=== PATIENT | male | born 1970 | race Hispanic/Latino ===

== ENCOUNTER 2024-08-04 10:23 | Emergency (ER) | payer BC ==
[~2024-08-04] VITALS: Ht 170.2 cm; Wt 81.6 kg
[2024-08-04 10:26] VITALS: BP 136/97; PULSE 69; RESP 16; TEMP 97.9; O2SAT 98
[2024-08-04] MEDS ORDERED: SULF1TAB42 PO (10:47)
[2024-08-04] MEDS ORDERED: POLY17PO4 PO (10:47)
--- NOTE | 2024-08-04 10:53 | ERN ---
General Chief Complaint: Hemorrhoids Stated Complaint: RECTAL PAIN Time Seen by MD: 10:28 Time Seen by Midlevel: 10:28 Source: patient History of Present Illness Initial Comments Patient is a 54-year-old male with no significant past medical history presenting to the emergency department with rectal pain that started two days ago. Patient noticed swelling to his anal area and is concerned he may have a hemorrhoid. Denies any blood in stool, fever, chills, or any other symptoms at this time. Denies any previous history of hemorrhoids but does report a history of chronic constipation. Allergies: Coded Allergies: No Known Drug Allergies (Unverified Allergy, Unknown, 08/04/24) Past Medical History Past Medical History: No Pertinent History Past Surgical History: None ROS Dictation CONSTITUTIONAL: Negative except for HPI HEAD/FACE: Negative except for HPI EENT: Negative except for HPI RESPIRATORY: Negative except for HPI GASTROINTESTINAL/ABDOMINAL: Negative except for HPI GENITOURINARY: Negative except for HPI MUSCULOSKELETAL: Negative except for HPI INTEGUMENTARY: Negative except for HPI NEUROLOGICAL/PSYCH: Negative except for HPI HEMATOLOGIC/LYMPHATIC: Negative except for HPI All Systems Negative, Except as noted above. 13 point review of systems assessed and all negative except for above. Physical Exam Physical Exam Dictation PHYSICAL EXAM: GENERAL: alert,, awake oriented x 3 HEENT: EOMI, Sclera non icteric, moist mucosa NECK: Supple, no JVD, trachea midline LUNGS: Clear breath sounds bilaterally. No wheezes HEART: Regular rate and rhythm. Normal S1 and S2, without murmurs ABD: Abdomen soft, nontender. Bowel sounds present EXT: No clubbing or cyanosis, NEURO: Alert and oriented to person, follows commands RECTAL: Large thrombosed hemorrhoid at the 3 o'clock position, no surrounding erythema, induration or drainable abscess at this time MDM MDM: Patient is a 54-year-old male with no significant past medical history presenting to the emergency department with rectal pain that started two days ago. Patient noticed swelling to his anal area and is concerned he may have a hemorrhoid. Denies any blood in stool, fever, chills, or any other symptoms at this time. Denies any previous history of hemorrhoids but does report a history of chronic constipation. Rectal examination was performed with Dr. Colbert at bedside. On physical examination patient has a large thrombosed external hemorrhoid at the 3 o'clock position measuring approximately 3 x 3 cm. We applied a lidocaine to the base of the hemorrhoid and a small incision was created which resulted in large return of a blood clot. Patient felt immediate relief. Patient will be started on oral antibiotics and MiraLax for outpatient management. He will be referred to GI outpatient for outpatient evaluation. Differential diagnosis: Cellulitis, abscess, thrombosed hemorrhoid, anal fissure There are no social concerns with this patient. Prescription drug management Prescriptions will include: Bactrim and MiraLax Medical management and examination interpretation discussions were had by me with other qualified healthcare professionals as indicated for the patient's care. ED Course Vital Signs Date Time Temp Pulse Resp B/P (MAP) Pulse Ox O2 Delivery O2 Flow Rate FiO2 08/04/24 10:26 97.9 69 16 136/97 98 Room Air 0 08/04/24 10:26 97.9 69 16 136/97 98 Room Air* 0 21 Procedure Dictation Performed by: Lo Vyas PA-C, Dr. Angeles Colbert MD Authorized by:Patient Consent: Verbal consent obtained. Risks and benefits: Risks, benefits, and alternatives were discussed Consent given by: Patient Patient understanding: patient states understanding of the procedure being performed Patient consent: the patient's understanding of the procedure matches consent given Patient identity confirmed: arm band Time out: Immediately prior to procedure a "time out" was called to verify the correct patient, procedure, equipment, developer support engineer and site/side marked as required. Type: Thrombosed external hemorrhoid Location details: Right perirectal area Anesthesia: local infiltration Local anesthetic: lidocaine 1% with epinephrine Anesthetic total: 15 ml Patient sedated: no Scalpel size: 11 Incision type: single straight Complexity: simple Drainage: Blood clots Drainage amount: moderate Wound treatment: sterile gauze Patient tolerance: Patient tolerated the procedure well with no immediate complications. DX & DISP Disposition: Discharge Departure Impression: Primary Impression: Thrombosed external hemorrhoid Condition: Stable Scripts Polyethylene Glycol 3350 (Miralax) 17 Gram Powd.pack 17 GM PO DAILY for constipation, #20 PACKET 0 Refills Prov: LO VYAS 08/04/24 Sulfamethoxazole/Trimethoprim (Bactrim Ds Tablet) 800 Mg-160 Mg Tablet 1 TAB PO BID for 7 Days, #14 TAB 0 Refills Prov: LO VYAS 08/04/24 Additional Instructions: Your physical examination today is consistent with a thrombosed external hemorrhoid. A small incision was created in the thrombosed hemorrhoid and a large blood clot was removed. This should help alleviate your pain. You will need to see a GI specialist outpatient for possible removal of hemorrhoids. I have given you a prescription for antibiotics to prevent an infection. I have also given you a prescription for MiraLax which should help soft in your stools over the next couple of days. If you develop any new or worsening symptoms please report to the emergency department. Referrals: MEERA LIVINGSTON MD Time of Disposition: 10:48 I have reviewed the case, and I agree with, Diagnosis and Plan I performed the substantive portion of the visit. I have reviewed and personally made and approve the management plan that is documented in the note by myself or the JUAN ANTONIO. I acknowledge for responsibility for the patient's man agement plan. LO VYAS Aug 04, 2024 10:53
== END 2024-08-04 11:52 | disposition home or self-care (01) ==
LOC: EDH 10:23
DX: K64.5 Perianal venous thrombosis (principal)
CPT/HCPCS: 46083; 99281; 99283

== ENCOUNTER 2024-08-04 13:07 | Emergency (ER) | payer BC ==
[~2024-08-04] VITALS: Ht 170.2 cm; Wt 81.6 kg
[~2024-08-04 13:07] MED LIST: POLY17PO4 PO; SULF1TAB42 PO
[2024-08-04] MEDS ORDERED: LIDOCAINE HCL 1% 20 ML VIAL INJ SCH (13:30)
--- NOTE | 2024-08-04 13:51 | ERN ---
General Chief Complaint: Hemorrhoids Stated Complaint: RESIGN IN Time Seen by MD: 13:08 Time Seen by Midlevel: 13:08 Source: patient History of Present Illness Initial Comments Patient is a 54-year-old male presenting to the emergency department with rectal pain. Patient was just seen in our emergency department approximately 1 hour ago where he was found to have a thrombosed external hemorrhoid. A small incision was created and the blood clot was removed. Patient states he went home and continued to bleed so he decided to report to the ER for further evaluation. No other concerns reported at this time Allergies: Coded Allergies: No Known Drug Allergies (Unverified Allergy, Unknown, 08/04/24) Home Meds Active Scripts Polyethylene Glycol 3350 (Miralax) 17 Gram Powd.pack, 17 GM PO DAILY for constipation, #20 PACKET 0 Refills Prov:LO HOBBS 08/04/24 Sulfamethoxazole/Trimethoprim (Bactrim Ds Tablet) 800 Mg-160 Mg Tablet, 1 TAB PO BID for 7 Days, #14 TAB 0 Refills Prov:LO HOBBS 08/04/24 Past Medical History Past Medical History: No Pertinent History Past Surgical History: None ROS Dictation CONSTITUTIONAL: Negative except for HPI HEAD/FACE: Negative except for HPI EENT: Negative except for HPI RESPIRATORY: Negative except for HPI GASTROINTESTINAL/ABDOMINAL: Negative except for HPI GENITOURINARY: Negative except for HPI MUSCULOSKELETAL: Negative except for HPI INTEGUMENTARY: Negative except for HPI NEUROLOGICAL/PSYCH: Negative except for HPI HEMATOLOGIC/LYMPHATIC: Negative except for HPI All Systems Negative, Except as noted above. 13 point review of systems assessed and all negative except for above. Physical Exam Physical Exam Dictation PHYSICAL EXAM: GENERAL: alert,, awake oriented x 3 HEENT: EOMI, Sclera non icteric, moist mucosa NECK: Supple, no JVD, trachea midline LUNGS: Clear breath sounds bilaterally. No wheezes HEART: Regular rate and rhythm. Normal S1 and S2, without murmurs ABD: Abdomen soft, nontender. Bowel sounds present EXT: No clubbing or cyanosis, NEURO: Alert and oriented to person, follows commands SKIN: Thrombosed hemorrhoid with minimal active bleeding MDM MDM: Patient is a 54-year-old male presenting to the emergency department with rectal pain. Patient was just seen in our emergency department approximately 1 hour ago where he was found to have a thrombosed external hemorrhoid. A small incision was created and the blood clot was removed. Patient states he went home and continued to bleed so he decided to report to the ER for further evaluation. No other concerns reported at this time. On physical examination there is a thrombosed hemorrhoid with minimal active bleeding. The area was cleansed into chromic gut sutures were placed. Bleeding stopped. The area was covered with quick clot patient will be discharged home with outpatient follow up Differential diagnosis: Thrombosed hemorrhoid, wellness exam, abscess, cellulitis There are no social concerns with this patient. Prescription drug management Prescriptions will include: None Medical management and examination interpretation discussions were had by me with other qualified healthcare professionals as indicated for the patient's care. ED Course Orders Procedure Category Date Status Time Lidocaine Hcl 1% 20ml PHA 08/04/24 In Process Vial (Lidocaine Hc 13:30 Current Medications Medications (Trade) Dose Ordered Sig/Estrella Route PRN Reason Start Time Stop Time Status Last Admin Dose Admin Lidocaine HCl (Lidocaine HCl 1% 20ml Vial) ONCE INJ 08/04/24 13:30 09/03/24 13:29 DX & DISP Disposition: Discharge Departure Impression: Primary Impression: Thrombosed external hemorrhoid Condition: Stable Additional Instructions: Follow up with GI specialist as discussed. Take your antibiotics as prescribed. Referrals: JAGUAR SOLER (PCP) Time of Disposition: 13:50 I have reviewed the case, and I agree with, Diagnosis and Plan I performed the substantive portion of the visit. I have reviewed and personally made and approve the management plan that is documented in the note by myself or the JUAN ANTONIO. I acknowledge for responsibility for the patient's management plan. LO HOBBS Aug 04, 2024 13:51
[2024-08-04 14:04] VITALS: BP 150/99; PULSE 90; RESP 16; TEMP 98.2; O2SAT 98
--- NOTE | 2024-08-04 15:34 | NUR ---
PT WAS NEVER PLACED INTO FAST TRACK AND ELOPED BEFORE DISCHARGE INSTRUCTIONS COULD BE GIVEN
== END 2024-08-04 15:30 | disposition left against medical advice (07) ==
LOC: EDH 13:07
DX: K64.5 Perianal venous thrombosis (principal)
CPT/HCPCS: 99281